=== PATIENT | male | born 1985 | race Caucasian/White ===

== ENCOUNTER 2017-04-19 17:11 | Emergency (ER) | payer OTHER ==
[~2017-04-19] VITALS: Ht 188 cm; Wt 128.0 kg
[2017-04-19 17:14] VITALS: TEMP 37.6; Ht 188 cm; Wt 128.0 kg
[2017-04-19] MEDS ORDERED: METHYLPREDNISOLONE 125 MG VIAL IV STA (17:29)
[2017-04-19] MEDS ORDERED: SODIUM CHLORIDE 0.9% 500ML 500 ML IV STA (17:29)
[2017-04-19] MEDS ORDERED: AMPICILLIN/SULBACTAM SOD INJ 3,000 MG in SODIUM CHLORIDE 0.9% 100ML 100 ML IV ONE (17:30)
[2017-04-19 17:51] LABS: BASO % 0.2 %; BASO ABS # 0.03 K/uL (0-0.2); EOS % 1.4 %; HEMATOCRIT 40.8 % (42-52); HEMOGLOBIN 14.3 g/dL (14.0-18.0); IG# 0.06 K/uL (0.00-0.02); LYMPH % 21.6 %; MEAN CELL VOLUME 93.4 fL (80-100); MEAN CORPUSCULAR HEMOGLOBIN 32.7 pg (25-34); MEAN PLATELET VOLUME 10.2 fL (7.4-10.4); MONO % 8.5 %; MONO ABS # 1.22 K/uL (0.11-0.59); NEUT % 67.9 %; NEUT ABS # 9.73 K/uL (1.4-6.5); PLATELET COUNT 308 K/uL (130-400); RED CELL DISTRIBUTION WIDTH CV 12.7 % (11.5-14.5); RED CELL DISTRIBUTION WIDTH SD 43.5 fL (36.4-46.3); WHITE BLOOD COUNT 14.34 K/uL (4.8-10.8)
[2017-04-19] MEDS ORDERED: LIDOCAINE/EPINEPHRINE 1% 20 ML VIAL ONE (18:17)
[2017-04-19 18:41] LABS: CALCIUM 9.5 mg/dl (8.5-10.1); CREATININE 0.97 mg/dl (0.60-1.40)
[2017-04-19 19:01] VITALS: BP 129/80; PULSE 92; O2SAT 94
--- NOTE | 2017-04-19 19:22 | ENT CONSULTATION ---
DATE OF CONSULTATION: 04/19/2017 EMERGENCY ROOM ENT CONSULT/PROCEDURE NOTE NOTICE TO RECEIVING LIBERTARIAN/AGENCY This information is strictly Confidential and protected under [place] law. [place] law prohibits you from making any further disclosure of this information unless further disclosure is expressly permitted by the written consent of the person to whom it pertains or is authorized by law. A general authorization for the release of medical or other information is not sufficient for this purpose. Hospital accepts no responsibility if the information is made available to any other person, INCLUDING THE PATIENT. I have been asked by physician planning assistant Chemo Serrato and Dr. Manjinder Yepez to evaluate this patient in the Emergency Room with a right peritonsillar abscess. 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 Intermittently he has been having shortness of breath while lying flat at home. He has no prior history of peritonsillar abscess. He has no significant streptococcal tonsillitis history. He states that he was seen in an urgent care center last where a strep test was positive and he was given amoxicillin 500 mg twice daily which seems to be a very small dose given his weight of 128 kilograms. His symptoms worsened and he presented to the [facility] Emergency Room for further evaluation and management. ALLERGIES: No known drug allergies. MEDICATIONS AT HOME: Antidepressant of which he does not remember the name. PAST MEDICAL HISTORY: Depression/anxiety. PAST SURGICAL HISTORY: Status post cholecystectomy. FAMILY HISTORY: Noncontributory. No bleeding disorders or malignant hyperthermia. 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 He smokes approximately 1 pack of cigarettes per week. He drinks approximately 1-2 alcoholic beverages per week. He denies any illicit drug use. REVIEW OF SYSTEMS: The patient has the above-mentioned sore throat which is worse on the right hand side, right-sided otalgia, odynophagia, dysphagia, muffled voice, and trismus. He denies any hearing loss, tinnitus, dizziness, or vertigo. He denies any lightheadedness or chest pain. He currently is not short of breath. PHYSICAL EXAMINATION: GENERAL: This is a young adult white male in no acute distress with a hot potato voice. VITAL SIGNS: His temperature is elevated at 37.6 degrees Celsius. He has mild tachycardia with a pulse of 94 and mild hypertension with a blood pressure of 151/99. His respirations are 20 and he is satting 96-98% on room air. HEENT: The patient's external ear canals and tympanic membranes are clear bilaterally. He has a mild left septal deviation and right greater than left inferior turbinate hypertrophy without nasal mucosal congestion. Oral cavity and oropharyngeal examination reveals mild trismus. He has significant soft palate edema on the right with uvular deviation to the left. His right tonsil is 4+ and inflamed. His left tonsil is 1-2+ and endophytic. NECK: Reveals tender upper jugular digastric lymphadenopathy on the right side only. Laboratory examination reveals an elevated white blood cell count of 14.34. He has mild anemia with a hematocrit of 40.8. His sed rate is elevated at 89. PROCEDURE: After verbally obtaining informed consent, the patient's oral cavity and oropharynx were sprayed with topical Cetacaine spray. After allowing adequate time for anesthesia, 1 mL of 1% lidocaine with 1:100,000 epinephrine was injected into the right peritonsillar space. After allowing adequate time for vasoconstriction and anesthesia, an 18 gauge needle on a 10 mL syringe was used to aspirate approximately 1 mL of purulent material from the right peritonsillar space. This material was sent for Gram stain, culture and sensitivity. A #11 scalpel was then used to make a horizontal incision in the soft palate at the level of the needle aspiration site and a tonsil clamp was used to spread in the right peritonsillar space and approximately 10 mL of yellow thick purulent material was obtained and suctioned. The patient immediately had relief of his dysphagia and trismus with the procedure. The patient tolerated the procedure well with no apparent complication. IMPRESSION AND RECOMMENDATIONS: 1. 32-year-old male with right peritonsillar abscess status post incision and drainage. I have given the patient 3 prescriptions for Lortab 7.5 mg/325 mg/15 mL with 5-15 mL p.o. q. 4 hours p.r.n. for pain and with 500 mL given. 2. Clindamycin 75 mg per 5 mL with 20 mL p.o. q. 6 hours x10 days. 3. Orapred 15 mg per 5 mL with 10 mL p.o. b.i.d. for 5 days followed by 5 mL p.o. b.i.d. for 2 days, followed by 5 mL daily for 2 days. He should follow up with me in my office on April 22 at 11:00 a.m. and he should call sooner if he has any problems. If you have any questions regarding this consultation, please do not hesitate to contact me.
--- NOTE | 2017-04-19 19:35 | EMERGENCY ROOM VISIT NOTE ---
History First contact with patient: 17:18 Chief Complaint: THROAT PAIN/INJURY Stated Complaint: TONSIL ABCESS History of Present Illness The patient is a 32 year old male who presents to the Emergency Room with complaints of Arash worsening right tonsil swelling and difficulty swallowing. The patient reports that he developed a sore throat last Wednesday. He was seen at an urgent care facility in [place] last , and provided a prescription for amoxicillin 500 mg twice a day. The patient reports he has also had fevers and chills today. The patient has only been able to tolerate sips of water, and has not eaten today. He rates his discomfort a 5 out of 10. Review of Systems HEENT: Denies dizziness, visual problems, hearing loss, tinnitus. PULMONARY: Denies cough, shortness of breath, sputum production or hemoptysis. CARDIOVASCULAR: Denies chest pain, palpitations, dyspnea on exertion, orthopnea or peripheral edema. GASTROINTESTINAL: Denies diarrhea, constipation, nausea, vomiting, or abdominal pain. GENITOURINARY: Denies dysuria, frequency, urgency or nocturia. NEUROLOGIC: Denies history of epilepsy, CVA, TIA or chronic headaches. MUSCULOSKELETAL: Denies history of joint tenderness/swelling. SKIN: Denies rashes or lesions. PSYCHIATRIC: Denies history of depression or mental illness. ENDOCRINE: Denies history of diabetes or thyroid disorders. Past Medical/Surgical History Medical Problems: (1) Lumbago Surgical Problems: (1) No history of previous surgery Family History Unremarkable Social History Smoking Status: Current Every Day Smoker Alcohol Use: occasionally Marital Status: Occupation Status: employed Physical Exam Vital Signs Date Time Temp Pulse Resp B/P (MAP) Pulse Ox O2 Delivery O2 Flow Rate FiO2 04/19/17 19:01 92 18 129/80 94 04/19/17 18:03 98 Room Air 04/19/17 17:14 37.6 94 20 151/99 96 Room Air Physical Exam CONSTITUTIONAL: Healthy and well nourished. Alert and oriented X 3 with positive affect. Patient appears in mild discomfort. HEENT: Normocephalic, atraumatic. Pupils equal, round and reactive. No facial edema noted. Ears and nares are clear. OROPHARYNX: Positive trismus. The patient has bulging of the soft palate with leftward uvular deviation. NECK: Full active range of motion without discomfort. Trachea is midline. LYMPHATICS: Anterior cervical chain adenopathy is noted. RESPIRATORY: Clear to auscultation bilaterally with no wheezing, crackles, rhonchi or stridor. CARDIOVASCULAR: Regular rate and rhythm with no murmurs, rubs or gallops. GASTROINTESTINAL: Bowel sounds present in all quadrants. Soft and nontender to palpation with obvious palpable hepatosplenomegaly. MUSCULOSKELETAL: Full range of motion of all joints without discomfort. INTEGUMENTARY: No rash or other significant dermatologic conditions noted. NEUROLOGIC: No focal neurologic deficits noted. Medical Decision & Procedures Laboratory Results 04/19/17 17:40 Red Blood Count 4.37, Mean Corpuscular Volume 93.4, Mean Corpuscular Hemoglobin 32.7, Mean Corpuscular Hemoglobin Concent 35.0, Mean Platelet Volume 10.2, Neutrophils (%) (Auto) 67.9, Lymphocytes (%) (Auto) 21.6, Monocytes (%) (Auto) 8.5, Eosinophils (%) (Auto) 1.4, Basophils (%) (Auto) 0.2, Neutrophils # (Auto) 9.73, Lymphocytes # (Auto) 3.10, Monocytes # (Auto) 1.22, Eosinophils # (Auto) 0.20, Basophils # (Auto) 0.03 04/19/17 17:40 Test 04/19/17 17:40 White Blood Count 14.34 K/uL (4.8-10.8) Red Blood Count 4.37 M/uL (4.7-6.1) Hemoglobin 14.3 g/dL (14.0-18.0) Hematocrit 40.8 % (42-52) Mean Corpuscular Volume 93.4 fL (80-100) Mean Corpuscular Hemoglobin 32.7 pg (25-34) Mean Corpuscular Hemoglobin Concent 35.0 g/dl (32-36) Platelet Count 308 K/uL (130-400) Mean Platelet Volume 10.2 fL (7.4-10.4) Neutrophils (%) (Auto) 67.9 % Lymphocytes (%) (Auto) 21.6 % Monocytes (%) (Auto) 8.5 % Eosinophils (%) (Auto) 1.4 % Basophils (%) (Auto) 0.2 % Neutrophils # (Auto) 9.73 K/uL (1.4-6.5) Lymphocytes # (Auto) 3.10 K/uL (1.2-3.4) Monocytes # (Auto) 1.22 K/uL (0.11-0.59) Eosinophils # (Auto) 0.20 K/uL (0-0.5) Basophils # (Auto) 0.03 K/uL (0-0.2) RDW Standard Deviation 43.5 fL (36.4-46.3) RDW Coefficient of Variation 12.7 % (11.5-14.5) Immature Granulocyte % (Auto) 0.4 % Immature Granulocyte # (Auto) 0.06 K/uL (0.00-0.02) Erythrocyte Sedimentation Rate 89 mm/hr (0-14) Anion Gap 10.0 mmol/L (3-11) Est Creatinine Clear Calc Drug Dose 152.6 ml/min Estimated GFR () 117.6 Estimated GFR (Non- 101.4 BUN/Creatinine Ratio 12.2 (10-20) Calcium Level 9.5 mg/dl (8.5-10.1) The above labs were reviewed. Medications Administered Medications (Trade) Dose Ordered Sig/Unruly Route Start Time Stop Time Status Last Admin Dose Admin Sodium Chloride 500 ml @ 999 mls/hr Q31M STAT IV 04/19/17 17:29 04/19/17 17:59 DC 04/19/17 17:29 999 MLS/HR Ampicillin Sodium/ Sulbactam Sodium 3000 mg/Sodium Chloride 108 ml @ 200 mls/hr ONE ONCE IV 04/19/17 17:30 04/19/17 18:02 DC 04/19/17 18:06 200 MLS/HR Methylprednisolone Sodium Succinate (Solu-Medrol IV) 125 mg NOW STAT IV 04/19/17 17:29 04/19/17 17:32 DC 04/19/17 17:47 125 MG ED Course Patient history and physical exam were performed. Nurse's notes were reviewed. Oral temperature is 37.6C. The patient is not tachycardic. The patient is hypertensive with a blood pressure 151/99. IV access was established, and labs were drawn. The patient was administered Unasyn 3 g and Solu-Medrol 125 mg IVP. The case was discussed with Dr. Yepez, ED attending physician, who suggested ENT also patient. Consultation was made with Dr. Sheffield, who came to the emergency department for I&D procedure. Please see his dictation for further treatment and final disposition. The patient will follow-up in his office in 3 days for recheck, sooner with any further complications. All prescriptions were written and dispensed by Dr. Sheffield. On my final reevaluation, the patient denied any significant pain prior to discharge. Medical Decision Medication Reconcilliation Current Medication List: was personally reviewed by me Blood Pressure Screening Patient's blood pressure: Normal blood pressure Impression Primary Impression: Tonsillar abscess Departure Information Referrals Davida Cordova DO (PCP) Patient Instructions My [facility]
== END 2017-04-19 19:01 | disposition home or self-care (01) ==
LOC: C.EDB 17:13 → C.EDD 19:01
DX: J36 Peritonsillar abscess (principal); F17.200 Nicotine dependence, unspecified, uncomplicated